=== PATIENT | female | born 1990 ===

== ENCOUNTER 2017-02-19 14:44 | Emergency (ER) | payer OTHER ==
[2017-02-19 15:21] VITALS: BP 106/71; PULSE 96; RESP 20; TEMP 98.5; O2SAT 100
--- NOTE | 2017-02-19 15:45 | C.PDOC ---
History Of Present Illness 26 y/o female presents to the ED for evaluation of recurring b/l breast pain which began around 2 days ago. Patient notes she experiences similar symptoms every month. She reports LMP was 6/. She denies swelling, discharge, redness, or any other associated symptoms. Patient denies breast feeding. RECUR B/L BREAST PAIN X 2 DAYS. PS GETS EVERY MONTH. LMP 6/. NO SWELL, DC, REDNESS. DENIES BREAST FEEDING. 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 NO GROSS BREAST ASYMMETRY. NO NIPPLE ABN, DC. GEN FIBROUS TISSUE ON DEEP PALPATION. NO DIMPLING, SKIN CHANGES. NO AXILLA NODES SKIN NO RASH MDM ADVISED NSAIDS, FU CLINIC Time Seen by Provider: 02/19/17 15:27 Chief Complaint (Nursing): Breast Problem History Per: Patient History/Exam Limitations: no limitations Onset/Duration Of Symptoms: Days (2) Current Symptoms Are (Timing): Still Present Additional History Per: Patient Past Medical History Reviewed: Historical Data, Nursing Documentation, Vital Signs Vital Signs: Last Vital Signs Temp 98.5 F 02/19/17 15:18 Pulse 96 H 02/19/17 15:18 Resp 20 02/19/17 15:18 BP 106/71 02/19/17 15:18 Pulse Ox 100 02/19/17 22:10 - Medical History PMH: No Chronic Diseases Surgical History: No Surg Hx Family History: States: Unknown Family Hx - Social History Hx Alcohol Use: No Hx Substance Use: No - Immunization History Hx Tetanus Toxoid Vaccination: No Hx Influenza Vaccination: No Hx Pneumococcal Vaccination: No Review Of Systems Except As Marked, All Systems Reviewed And Found Negative. Musculoskeletal: Positive for: Other (b/l breast pain ) Skin: Negative for: Rash Physical Exam - Physical Exam Appears: Non-toxic, No Acute Distress Skin: Normal Color, Warm, Dry Eye(s): bilateral: Normal Inspection Lymphatic: No Axilla Node Tenderness Chest: Symmetrical, No Deformity, No Tenderness, Other (no gross breast asymmetry. no nipple abnormalities or discharge. generalized fibrous tissue on deep palpation. no dimpling, skin changes. 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) Cardiovascular: Rhythm Regular, No Murmur Respiratory: Normal Breath Sounds, No Rales, No Rhonchi, No Wheezing Extremity: Normal ROM, Capillary Refill (less than 2 seconds ) Neurological/Psych: Normal Speech, Normal Cognition Gait: Steady ED Course And Treatment O2 Sat by Pulse Oximetry: 100 (on RA) Pulse Ox Interpretation: Normal Medical Decision Making Medical Decision Making: ADVISED NSAIDS, FU CLINIC Disposition Counseled Patient/Family Regarding: Diagnosis, Need For Followup, Rx Given - Disposition Referrals: [facility] [Outside] [facility] [Outside] Disposition: HOME/ ROUTINE Disposition Time: 15:44 Condition: GOOD Prescriptions: Ibuprofen [Motrin] 600 mg PO Q6 #30 tab Instructions: Breast Self Exam for Women (ED) Print Language: AMHARIC - Clinical Impression Clinical Impression: Breast pain - Scribe Statement The provider has reviewed the documentation as recorded by the Scribe (Sharon Melo) Provider Attestation: All medical record entries made by the Scribe were at my direction and personally dictated by me. I have reviewed the chart and agree that the record accurately reflects my personal performance of the history, physical exam, medical decision making, and the department course for this patient. I have also personally directed, reviewed, and agree with the discharge instructions and disposition.
== END 2017-02-19 15:51 | disposition home or self-care (01) ==
LOC: C.ER 14:44
DX: N64.4 Mastodynia (principal)

== ENCOUNTER 2017-04-20 14:30 | Emergency (ER) | payer SELFPAY ==
--- NOTE | 2017-04-20 14:59 | C.PDOC ---
History Of Present Illness 26 y/o female, , estimated appx 6 weeks , presents with c/o vaginal bleeding x 2 days. Patient describes spotting yesterday, and notes heavier vaginal bleeding today with with clots; no other tissue. Patient reports she had positive urine test in clinic, and notes no ultrasound has been performed yet. Patient also reports lower abdominal cramping. Denies fever, vomiting, SOB. Time Seen by Provider: 04/20/17 14:43 Chief Complaint (Nursing): Female Genitourinary History Per: Patient History/Exam Limitations: no limitations Onset/Duration Of Symptoms: Days Current Symptoms Are (Timing): Still Present Quality Of Discomfort: Cramping Associated Symptoms: denies: Fever, Chills, Nausea, Vomiting, Diarrhea, Urinary Symptoms Recent travel outside of the [place]: No Abnormal Vaginal Bleeding: Yes : 1 Para: 0 Miscarriage: 0 Past Medical History Reviewed: Historical Data, Nursing Documentation, Vital Signs Vital Signs: Last Vital Signs Temp 98.6 F 04/20/17 14:36 Pulse 86 04/20/17 14:36 Resp 18 04/20/17 14:36 BP 110/76 04/20/17 14:36 Pulse Ox 100 04/20/17 14:59 - Medical History PMH: No Chronic Diseases Family History: States: Unknown Family Hx - Social History Hx Alcohol Use: No Hx Substance Use: No - Immunization History Hx Tetanus Toxoid Vaccination: No Hx Influenza Vaccination: No Hx Pneumococcal Vaccination: No Review Of Systems Except As Marked, All Systems Reviewed And Found Negative. Constitutional: Negative for: Fever, Chills Respiratory: Negative for: Cough, Shortness of Breath, Wheezing Gastrointestinal: Positive for: Abdominal Pain. Negative for: Vomiting Genitourinary: Positive for: Vaginal Bleeding Skin: Negative for: Rash Physical Exam - Physical Exam Additional Physical Exam Comments: Constitutional: No acute distress. Head: Normocephalic. Atraumatic. Eyes: PERRL. ENT: Moist mucous membranes. Neck: Supple. Cardiovascular: Regular rate. Radial pulse 2+ bilaterally. Chest: No tenderness. Respiratory: Clear to auscultation bilaterally. GI: Soft. Nontender. Nondistended. Back: No CVA tenderness. Musculoskeletal: No tenderness or swelling of extremities. Skin: No rash. Neurologic: Alert, no focal deficit. ED Course And Treatment - Laboratory Results Result Diagrams: 04/20/17 15:05 04/20/17 15:05 O2 Sat by Pulse Oximetry: 100 (RA) Pulse Ox Interpretation: Normal Medical Decision Making Medical Decision Making: Plan: * Ultrasound * Labs * Tylenol * Reassess Progress: US shows IUP, no FHR detected. Macrobid administered. F/u OBGYN, return to ED for worsening pain, bleeding, dyspnea, vomiting, or any other problem. Disposition - Disposition Referrals: at [facility] [Outside] Disposition: HOME/ ROUTINE Disposition Time: 16:53 Condition: STABLE Prescriptions: Nitrofurantoin Macrocrystals [Macrobid] 100 mg PO BID #13 cap Instructions: Threatened Miscarriage (ED) Forms: KO-SU (Georgian) - Clinical Impression Clinical Impression: Threatened - Scribe Statement The provider has reviewed the documentation as recorded by the Scribe SM All medical record entries made by the Scribe were at my direction and personally dictated by me. I have reviewed the chart and agree that the record accurately reflects my personal performance of the history, physical exam, medical decision making, and the department course for this patient. I have also personally directed, reviewed, and agree with the discharge instructions and disposition.
[2017-04-20 15:00] LABS: RBC URINE 378 /hpf (0-3); URINE BACTERIA RARE (<OCC); URINE BILIRUBIN NEGATIVE (NEGATIVE); URINE BLOOD 3+ (NEGATIVE); URINE COLOR Yellow (YELLOW); URINE GLUCOSE (UA) NORMAL (Normal); URINE KETONE TRACE mg/dL (NEGATIVE); URINE LEUKOCYTE ESTERASE TRACE Leu/uL (Negative); URINE PROTEIN 1+ mg/dL (NEGATIVE); URINE UROBILINOGEN NORMAL mg/dL (0.2-1.0); WBC URINE 1 /hpf (0-5)
[2017-04-20 15:14] LABS: BASO % 0.6 % (0.0-2.0); EOS % 0.8 % (0.0-4.0); HEMATOCRIT 39.4 % (34.0-47.0); LYMPH # 1.2 K/uL (1.0-4.3); LYMPH % 18.6 % (20.0-40.0); MEAN CORPUSCULAR HEMOGLOBIN 28.5 pg (27.0-31.0); MEAN PLATELET VOLUME 7.4 fL (7.2-11.7); MONO # 0.6 K/uL (0.0-0.8); MONO % 10.2 % (0.0-10.0); RED CELL DISTRIBUTION WIDTH 14.2 % (11.5-14.5); WHITE BLOOD COUNT 6.2 K/uL (4.8-10.8)
[2017-04-20 15:23] LABS: CHLORIDE 104 mmol/L (98-107); POTASSIUM 3.6 mmol/L (3.6-5.2); SODIUM 140 mmol/L (132-148)
[2017-04-20 15:25] LABS: AST/SGOT 23 U/L (14-36); BILIRUBIN,TOTAL 0.6 mg/dL (0.2-1.3); CARBON DIOXIDE 22 mmol/L (22-30); GFR AFRICAN-AMERICAN > 60
[2017-04-20 15:26] LABS: ALB/GLOB RATIO 1.2 (1.0-2.1); ALKALINE PHOSPHATASE 112 U/L (38-126); ALT/SGPT 29 U/L (9-52); BLOOD UREA NITROGEN 11 mg/dL (7-17); CALCIUM 9.3 mg/dl (8.6-10.4); GLUCOSE,RANDOM 87 mg/dL (65-105); TOTAL PROTEIN 7.2 g/dL (6.3-8.3)
--- NOTE | 2017-04-20 16:42 | US ---
Indication: vag bleed in , assess cervix Comparison: None available. Technique: 1st trimester/Ob transvaginal ultrasound Findings: Uterus measures approximately 8.1 x 5.1 x 5.5 cm. Anteverted. Cervix length measures approximately 3.7 cm. 5 mm nabothian cyst. Small fluid noted within the cervix. There is a single intrauterine fetus present. 4 mm yolk sac. The gestational sac measures 1.8 cm and is compatible with a gestational age of 6 weeks 2 days. The crown-rump length measures 1.0 cm and is compatible with a gestational age of 7 weeks 1 day. heart motion is not detected. The right ovary measures 2.5 x 1.9 x 3.2 cm. The left ovary measures 4.0 x 2.0 x 3.4 cm. 1.2 x 0.9 x 1.2 cm left ovarian cyst. Blood flow was demonstrated to both ovaries. Impression: Single intrauterine with estimated gestational age 6 weeks 2 days by gestational sac calculation and 7 weeks 1 day by crown-rump length calculation. heart motion was not detected during this examination. Correlate clinically and follow-up as indicated. Small fluid is noted within the cervix which measures approximately 3.7 cm in length. 1.2 cm left ovarian cyst.
[2017-04-20 17:02] VITALS: BP 109/75; PULSE 98; RESP 20; TEMP 98.1; O2SAT 99
== END 2017-04-20 17:02 | disposition home or self-care (01) ==
LOC: C.ER 14:30
DX: O20.0 Threatened abortion (principal); Z3A.01 Less than 8 weeks gestation of pregnancy

== ENCOUNTER 2017-04-21 17:39 | Emergency (ER) | payer OTHER ==
[2017-04-21 17:52] VITALS: BMI 25.4
--- NOTE | 2017-04-21 18:23 | C.PDOC ---
History Of Present Illness <MurilloHiral Elmer - Last Filed: 04/21/17 18:55> <PetraMiranda - Last Filed: 04/21/17 20:09> 26 y/o female, , estimated 6 weeks , presents with complaints of lower abdominal cramping pain and vaginal bleeding for 3 days. Patient states she was seen in ED yesterday and told to return for any worsening bleeding or pain. She states the pain is more consistent and heavier vaginal bleeding today with with clots; no other tissue. (ChidiBoydHiral L) History Per: Patient, Family History/Exam Limitations: no limitations Onset/Duration Of Symptoms: Days (3) Current Symptoms Are (Timing): Still Present Severity: Moderate Quality Of Discomfort: Cramping, "Pain" Abnormal Vaginal Bleeding: Yes Last Menstral Period: 02/24/17 : 1 Para: 0 <MurilloHiral Elmer - Last Filed: 04/21/17 18:55> <Miranda Lambert - Last Filed: 04/21/17 20:09> Time Seen by Provider: 04/21/17 17:59 Chief Complaint (Nursing): Female Genitourinary Past Medical History Reviewed: Historical Data, Nursing Documentation, Vital Signs - Medical History PMH: No Chronic Diseases Surgical History: No Surg Hx Family History: States: Unknown Family Hx - Social History Hx Alcohol Use: No Hx Substance Use: No - Immunization History Hx Tetanus Toxoid Vaccination: No Hx Influenza Vaccination: No Hx Pneumococcal Vaccination: No <MurilloHiral Elmer - Last Filed: 04/21/17 18:55> Review Of Systems Except As Marked, All Systems Reviewed And Found Negative. Genitourinary: Positive for: Vaginal Bleeding <MurilloHiral Elmer - Last Filed: 04/21/17 18:55> Physical Exam - Physical Exam Appears: Non-toxic, No Acute Distress, Other (tearful, sad) Skin: Warm, Dry, No Pale, No Rash Head: Atraumatic, Normacephalic Eye(s): bilateral: Normal Inspection, EOMI Nose: Normal Oral Mucosa: Moist Neck: Normal ROM Chest: Symmetrical Cardiovascular: Rhythm Regular, No Murmur Respiratory: Normal Breath Sounds, No Accessory Muscle Use, No Rhonchi, No Wheezing Gastrointestinal/Abdominal: Bowel Sounds, Soft, Tenderness (Mild suprapubic tenderness), No Distention, No Guarding, No Hernia Back: Normal Inspection, No CVA Tenderness Extremity: Bilateral: Atraumatic, Normal ROM Neurological/Psych: Oriented x3, Normal Speech Gait: Steady <Hiral Murillo - Last Filed: 04/21/17 18:55> ED Course And Treatment - Laboratory Results Result Diagrams: 04/21/17 18:46 O2 Sat by Pulse Oximetry: 100 (room air) Pulse Ox Interpretation: Normal <Hiral Murillo - Last Filed: 04/21/17 18:55> - Laboratory Results Result Diagrams: 04/21/17 18:46 <Miranda Lambert - Last Filed: 04/21/17 20:09> Medical Decision Making <Hiral Murillo - Last Filed: 04/21/17 18:55> <Miranda Lambert - Last Filed: 04/21/17 20:09> Medical Decision Making: Impression: female with vaginal bleeding and cramping pain, likely spontaneous Plan: Ultrasound Labs Tylenol Record from yesterday reviewed: US shows IUP, no FHR detected. BHCG was 7138.4 Case signed out to DR Lambert pending US and labs (Hiral Murillo) Disposition - Disposition Disposition Time: 18:55 - POA Present On Arrival: None <Hiral Murillo - Last Filed: 04/21/17 18:55> Counseled Patient/Family Regarding: Studies Performed, Diagnosis, Need For Followup <Miranda Lambert - Last Filed: 04/21/17 20:09> - Disposition Referrals: [facility] [Outside] [facility] [Outside] Disposition: HOME/ ROUTINE Condition: FAIR Instructions: Spontaneous Miscarriage (ED) Forms: Algisys (Telugu) - Clinical Impression Clinical Impression: demise Physician Patient Turnover Patient Signed Over To: Miranda Lambert Handoff Comments: Pending US and labs <Hiral Murillo - Last Filed: 04/21/17 18:55>
[2017-04-21 18:52] LABS: HEMATOCRIT 39.8 % (34.0-47.0); MEAN CELL VOLUME 83.5 fL (81.0-99.0); MEAN CORPUSCULAR HGB CONC 33.6 g/dL (33.0-37.0); MEAN PLATELET VOLUME 7.4 fL (7.2-11.7); RED CELL DISTRIBUTION WIDTH 14.1 % (11.5-14.5); WHITE BLOOD COUNT 5.1 K/uL (4.8-10.8)
[2017-04-21 20:16] VITALS: BP 110/70; PULSE 86; RESP 16; TEMP 99; O2SAT 99
--- NOTE | 2017-04-22 07:57 | US ---
HISTORY: bleeding preg, miscarriage, r.o POC COMPARISON: Transvaginal obstetric ultrasound 04/20/2017. TECHNIQUE: Transvaginal pelvic ultrasound was performed for evaluation of pain potential potential retained products of conception is patient history of spontaneous vaginal bleeding in prior intrauterine gestation whose viability was not proven by ultrasonography 04/20/2017. FINDINGS: UTERUS: Measures 8.1 x 4.4 x 5.0 cm. Anteverted and mildly enlarged. No fibroid or other mass lesion seen. ENDOMETRIUM: Measures 11 mm in diameter. There is no intrauterine gestation identified compatible with spontaneous miscarriage. An endometrium of 11 mm is not suspicious for retained products of conception. Echogenicity of the endometrium is heterogeneous. Clinically correlate nevertheless. CERVIX: A nabothian cyst identified in the cervix with additional tiny cyst seen either in the lower uterine segment anteriorly submucous space oral in the upper cervix anteriorly. . RIGHT OVARY: Measures 3.1 x 2.2 x 2.9 cm. No solid mass. Normal flow. LEFT OVARY: Measures 2.5 x 1.8 x 2.3 cm. No solid mass. Normal flow. A probable corpus luteum cyst seen at the left ovary 1.2 cm FREE FLUID: , simple in appearance. No significant free fluid noted. OTHER FINDINGS: None. IMPRESSION: 1. The prior intrauterine gestation is now not visualized including the gestational sac. Pattern is compatible with the clinical history of miscarriage. Endometrium measures 11 mm which is below the measurements to suggest retained products of conception. Clinically correlate nevertheless. 2. Likely small left corpus luteum cyst.
== END 2017-04-21 20:16 | disposition home or self-care (01) ==
LOC: C.ER 17:39
DX: O02.1 Missed abortion (principal)

== ENCOUNTER 2018-04-22 20:25 | Emergency (ER) | payer OTHER ==
--- NOTE | 2018-04-22 21:08 | OBHP ---
Datetime: 04/22/2018 21:03 IP Adm Impression: Term, intrauterine IP Admit Plan: Discharge home Admit Comment, IP Provider: @ 40.2 wks GA c/o of ctx laurie neveyr 5-10 min regular / intesnity . pt dneis ny lof, vb, +FM. Pt michael any issues with and rperots receives regular prenatl c are. Pt denies any discharge, bowel or bladder complaints. P tproerts seen lat week and has anohter a ppoitnemt this week adn is schlued for induction on . 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 PMH: Denies PSH: dines FH:X non contibuir MEDS: PNV NKDA SHX: negative x 3 A/P @ 40.2 wks GA not in labor -EFM Cat I -dc home -labor precautions given -Schleuled for Induction this week Pelvic Type - PN: Adequate Extremities - PN: Normal Abdomen - PN: Normal Back - PN: Normal Breast - PN: Normal Lungs - PN: Normal Heart - PN: Normal Thyroid - PN: Normal Neurologic - PN: Normal HEENT - PN: Normal General - PN: Normal Presentation-Admit: Vertex FHR - Baseline A Provider: 150 Membranes, Provider: Intact Contraction Comments Provider: q5-10 min Gestation - Est Wks by US: 40.2 IP Hx Assessment: The History has been Reviewed and is Current EGA AdmitDate IP: 40.2 Vital Signs Provider: Reviewed; Within Normal Limits IP Chief Complaint: Uterine contractions NICHD Variability Prov Fetus A: Moderate 6-25bpm FHR Category Provider Fetus A: Category I NICHD Decel Fetus A IP Provider: None Dilatation, Provider: 1 Effacement, Provider: 0 Station, Provider: -3 Genitourinary Exam: Normal DTRs - PN: Normal
--- NOTE | 2018-04-22 21:09 | OBDCSUM ---
Datetime: 04/22/2018 21:06 Discharged to, Provider: Home Follow up at, Provider: clinic Disch Instr Activity: Normal activity Disch Instr Diet: Regular Discharge Instructions, Provider: Routine instructions given Discharge Time: 04/22/2018 21:06 Discharge Time: 04/22/2018 21:06 Disch Referrals: None Discharge Comment, Provider: pt edenilson for induction Thusrday labor precautin givne, if increasing pain, leakage of fluid, dischare, vaginal bleeidng, decreased or less or no movments or other concers come back ot earest er for evalutoin Discharge Diagnosis Prov Other: labor check not in labor
[2018-04-23 03:38] VITALS: BP 107/64; PULSE 98; RESP 18; TEMP 99; O2SAT 97
== END 2018-04-22 21:15 | disposition home or self-care (01) ==
LOC: C.EROB 20:25
DX: O47.1 False labor at or after 37 completed weeks of gestation (principal); Z3A.40 40 weeks gestation of pregnancy

== ENCOUNTER 2018-04-26 19:53 | Inpatient (IN) | payer MEDICAID, OTHER ==
[2018-04-26] MEDS: Lactated Ringer's 1,000 ML IV SCH (20:40)
[2018-04-26] MEDS ORDERED: Lactated Ringer's 1,000 ML IV ONE (21:18)
[2018-04-26 22:19] LABS: BASO % 0.3 % (0.0-2.0); EOS # 0.2 K/uL (0.0-0.7); EOS % 2.2 % (0.0-4.0); HEMOGLOBIN 11.9 g/dL (11.0-16.0); LYMPH # 1.3 K/uL (1.0-4.3); LYMPH % 15.5 % (20.0-40.0); MEAN CELL VOLUME 81.4 fL (81.0-99.0); MEAN CORPUSCULAR HEMOGLOBIN 27.7 pg (27.0-31.0); MEAN PLATELET VOLUME 7.4 fL (7.2-11.7); MONO # 0.5 K/uL (0.0-0.8); MONO % 6.4 % (0.0-10.0); NEUT # 6.2 K/uL (1.8-7.0); NEUT % 75.6 % (50.0-75.0); NRBC % 0.1 % (0.0-2.0); RBC 4.3 Mil/uL (3.80-5.20); RED CELL DISTRIBUTION WIDTH 15.4 % (11.5-14.5); WHITE BLOOD COUNT 8.2 K/uL (4.8-10.8)
[2018-04-26 22:26] LABS: SQUAMOUS EPITHIAL 11 /hpf (0-5); URINE BACTERIA FEW (<OCC); URINE BILIRUBIN NEGATIVE (NEGATIVE); URINE BLOOD 2+ (NEGATIVE); URINE CLARITY Hazy (Clear); URINE COLOR Yellow (YELLOW); URINE GLUCOSE (UA) NORMAL (Normal); URINE LEUKOCYTE ESTERASE 2+ Leu/uL (Negative); URINE PROTEIN 1+ mg/dL (NEGATIVE); URINE UROBILINOGEN NORMAL mg/dL (0.2-1.0)
[2018-04-26 22:31] LABS: ALBUMIN 3.1 g/dL (3.5-5.0); ALT/SGPT 28 U/L (9-52); AST/SGOT 26 U/L (14-36); BLOOD UREA NITROGEN 7 mg/dL (7-17); CALCIUM 8.2 mg/dl (8.6-10.4); GFR NON-AFRICAN AMERICAN > 60
--- NOTE | 2018-04-26 23:19 | OBADHP ---
Datetime: 04/26/2018 22:56 IP Admit Plan Other: Augmentation Admit Comment, IP Provider: Patient seen and evaluated at approximately 2050 hours. 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 , LMP unsure, ARIANA 04/20/18, EGA 40w 6d by sono 10/11/17 at 12w 5d, for IOL. (+) AFM; denies LOF, VB. (+) Ctx x approx 1 month; stronger last night, pain scale 3/10, occurring 10 to 15 m inutes since earlier today. Passed mucous plug 04/22/18. care: [facility]; no issues P Ob: 2017, Sp Ab, 2 months, no D_C P RN LAB: 12 x monthly x 3. No h/o STIs/abnormal Pap, ovarian cysts PMH: denies PSH: denies NKDA Meds: unclear as to when last taken vitamins Soc Hx: denies tobacco, illicit drug or EtOH use. With FOB x 1 yr; (+) cohabitation. Unemployed. Fam Hx: Mother alive 40 y.o. Father alive 45 u.o. - both, no med issues. P.E.: as above. Petite, in NAD. Awake, alert, oriented to time, person and place. Pleasant and co operative. Assessment: 26 y.o. P0010, 40w 6d, advanced cervical dilatation. Category 1 tracing. GBS (-). D/W patient augmentation with pitocin; pain relief - discussed epidural. Patient expressed an understandi ng and agrees with plan. No questions offered. Clinically stable. Plan: 1) Admit 2) NPO 3) Admission labs 4) Continuous EFM 5) Start pitocin 6) Pain relief, upon request 7) Anticipate vaginal delivery Pelvic Type - PN: Adequate Extremities - PN: Normal Abdomen - PN: Normal Back - PN: Normal Breast - PN: Normal Lungs - PN: Normal Heart - PN: Normal Thyroid - PN: Not Done Neurologic - PN: Normal HEENT - PN: Normal General - PN: Normal Presentation-Admit: Vertex FHR - Baseline A Provider: 145 Contraction Comments Provider: 6-10 minutes Comments, ACOG Physical Exam: Abdomen: Gravid. Soft. Nontender. Fundal height 40 cm All other systems reviewed and are negative Gestation - Est Wks by US: 40w 6d Vital Signs Provider: Reviewed; Within Normal Limits IP Chief Complaint: Scheduled induction of labor; Other NICHD Variability Prov Fetus A: Moderate 6-25bpm NICHD Accel Fetus A IP Provider: 15X15 FHR Category Provider Fetus A: Category I NICHD Decel Fetus A IP Provider: None Dilatation, Provider: 5 Effacement, Provider: 50 Station, Provider: -2 Genitourinary Exam: Normal DTRs - PN: Not Done EGA AdmitDate IP: 40.6 IP Adm Impression: Postterm, intrauterine ; No Active Labor; Intact Membranes IP Admit Plan: Admit to unit Datetime: 04/22/2018 21:03 Membranes, Provider: Intact IP Hx Assessment: The History has been Reviewed and is Current
[2018-04-27] MEDS ORDERED: Oxytocin 30 UNIT 30 UNITS/500 ML BAG IV ONE ×4 (00:01→15:10)
[2018-04-27] MEDS ORDERED: Bupivacaine HCl/FentaNYL Cit 100 ML EPI ONE ×3 (00:45→15:04)
[2018-04-27] MEDS: Lactated Ringer's 1,000 ML IV SCH (06:40)
--- NOTE | 2018-04-27 09:14 | OBPN ---
Datetime: 04/27/2018 09:07 IP Progress Impression: Normal progression of labor IP Procedures: Artificial ROM; Sterile Vag Exam IP Progress Plan: Continue present management; Augmentation; Anticipate Vaginal Delivery Membranes, Provider: Ruptured Amniotic Fluid Color, Provider: Clear Contraction Comments Provider: 1-2 FHR - Baseline A Provider: 140 Gestation - Est Wks by US: 41.0 Presentation-Admit: Vertex IP Progress Note Comment: Patient comfortable; S/P epidural. Cervical exam: as abov.e AROM performed, - moderte amount of clear amnion i fluid obtained. Pitoci n = 6 mUnits Assessment: 26 y.o. P0010, 41 weeks, IOL. Protracted active phase of labor. Category 1 tracing. Cl inically stable. Plan: 1) Continue pitocin 2) Anticipate vaginal delivery NICHD Accel Fetus A IP Provider: 15X15 FHR Category Provider Fetus A: Category I NICHD Variability Prov Fetus A: Moderate 6-25bpm Dilatation, Provider: 7 Effacement, Provider: 70 Station, Provider: -2 NICHD Decel Fetus A IP Provider: None Datetime: 04/26/2018 22:56 Vital Signs Provider: Reviewed; Within Normal Limits
--- NOTE | 2018-04-27 13:35 | OBPN ---
Datetime: 04/27/2018 13:24 IP Progress Impression Other: Protracted active phase of labor IP Procedures: Intrauterine Pressure Catheter IP Progress Plan: Continue present management; Augmentation; Anticipate Vaginal Delivery Membranes, Provider: Ruptured Contraction Comments Provider: 1-2 IP Progress Note Comment: Patient receive din LDR#2, comfortable. Cervicl exam: as above. IUPC inserted without difficulty Assessment: 27 y.o. P0010, 41 weeks; protracted active phase of labor on pitocin - S/P AROM. IUPC as above. D/W patient, will re-examine in 2 hours. If no appropriate progress, will proceed with abd omnal delivery. Pateint expressed an understanding. Patient is clinically stable. Plan: 1) Re-examine in 2 hours Dilatation, Provider: 8 Effacement, Provider: 80 Station, Provider: 1
[2018-04-27] MEDS ORDERED: Sodium Bicarbonate (8.4%) 50 Meq Syringe ONE (15:44)
[2018-04-27] MEDS ORDERED: cefOXitin IV 2 gm in Saline 0 GM/0 ML BAG IVPB ONE (16:41)
[2018-04-27] MEDS ORDERED: Sodium Citrate/Citric Acid 15 ml Sol ONE (16:41)
[2018-04-27] MEDS ORDERED: Oxytocin 20 units in LR 0 ML IV ONE (16:42)
--- NOTE | 2018-04-27 17:09 | OBPN ---
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 Assessment: 27 y.o. P0010, 41 weeks, arrest of labor: arrest of cervical dilatation at 8 cm, arres t of descent with adequate contractions (>200 Swatara units for > 2 hours). Patient and FOB , counseled re: abdominal delivery, i.e., section. Patient is refusing to proceed with this mode of delivery, indicating "I want to do this by my own force". Several attempts were made to expla in to patient that all maneuvers that are available have been implemented and exhausted. Patient stil l refuses. Refusal of Treatment - Release of Liability form was dated and signed by patient, FOB pres ent throughout the entire encounter, after a lengthy discussion of possible complications, including but not limited infection, sepsis, neurologic and other organ compromise and failure, to either and/or both mother and fetus. Category 1 traicng. Patient is clinically stable. Plan: 1) expectant management 2) Continue pitocin and close observation NICHD Accel Fetus A IP Provider: 15X15 FHR Category Provider Fetus A: Category I NICHD Variability Prov Fetus A: Moderate 6-25bpm Dilatation, Provider: 8 Effacement, Provider: 90 Station, Provider: 1 NICHD Decel Fetus A IP Provider: None
[2018-04-27] MEDS ORDERED: Clindamycin 600 MG in Sodium Chloride 0.9% 100 ML IV SCH (19:30)
[2018-04-27] MEDS ORDERED: AMPicillin 2 GM in Sodium Chloride 100 ML IVPB SCH (19:30)
[2018-04-27] MEDS: AMPicillin 2 GM in Sodium Chloride 0.9% 100 ML IVPB SCH (20:09)
[2018-04-27] MEDS ORDERED: Lidocaine 2% MPF (5 ml) Inj ONE ×2 (20:22→23:01)
[2018-04-27] MEDS: Clindamycin 600mg/50ml NS 600 MG/50 ML BAG IVPB SCH (22:18)
[2018-04-27] MEDS ORDERED: Oxycodone/Acetaminophen 5/325 mg Tab PO PRN ×2 (23:42)
--- NOTE | 2018-04-28 00:17 | OBDS ---
DELIVERY PERSONNEL Delivery Doctor: Nikole Luciano MD Processes Chemical Design Engineer: Stephanie Christina RN Anesthesiologist: Dr. Villagran MATERNAL INFORMATION Delivery Anesthesia: Epidural Medications in Delivery: oxytocin 30 units in 500 ml NACL Estimated Blood Loss (ml): 500 Placenta Cultured: No Provider Comments: Vaginal delivery, live female , JAYESH position over right mediolateral episio jazzmine. 's mouth and nose bulb-sucitoned; umbilical cord doubly clamped and cut; placed on mother's abdomen. Spontaneous delivery of placenta, grossly normal; 3 vessel cord Uteine exploraiton performed; uterus emptied of clots -contracted and firm Cervix, vagina, perineum inspected - laceration noted and repaired as above. Patient tolerated procedure well; bonded with . Infant to well baby nursery for further ismael gement - due to maternal fever. Mother and baby in stable condition EBL 500 mL Weight 8lb 6oz 's 9/9 LABOR SUMMARY EDC: 04/20/2018 00:00 No. Babies in Womb: 1 Attempted: No Labor Anesthesia: Epidural LABOR INFORMATION Onset of Labor: 04/26/2018 11:00 Complete Dilatation: 04/27/2018 19:14 Oxytocin: Augmentation Group B Beta Strep: Negative Antibiotics # of Doses: 3 Antibiotics Time of Last Dose: 2218 Steroids Given: None Reason Steroids Not Administered: Not Applicable MEMBRANES Membranes Rupture Method: Artificial Rupture of Membranes: 04/27/2018 09:06 Length of Rupture (hrs): 13.70 Amniotic Fluid Color: Clear Amniotic Fluid Amount: Moderate Amniotic Fluid Odor: Normal STAGES OF LABOR Stage 1 hrs: 32 Stage 1 min: 14 Stage 2 hrs: 3 Stage 2 min: 34 Stage 3 hrs: 0 Stage 3 min: 27 Total Time in Labor hrs: 36 Total Time in Labor min: 15 VAGINAL DELIVERY Episiotomy: Right Mediolateral Laceration Extension: First Degree Laceration Type: Vaginal Laceration Repair: Yes Laceration Repair Note: 2-0 and 3-0 chromic - routine fashion Hemostasis assured Patient tolerated procedure well Initial Vag Sponge Count: 11 Final Vag Sponge Count: 21 Initial Vag Sharps Count: 3 Final Vag Sharps Count: 3 Sponge Count Correct: Yes Sharps Count Correct: Yes Count Comment: Correct CSECTION DELIVERY Uterine Closure: Double-layer closure BABY A INFORMATION Infant Delivery Date/Time: 04/27/2018 22:48 Method of Delivery: Vaginal Born in Route : No : N/A Forceps: N/A Vacuum Extraction: N/A SHOULDER DYSTOCIA BABY A Infant Delivery Date/Time: 04/27/2018 22:48 PRESENTATION/POSITION BABY A Presentation: Cephalic Cephalic Presentation: Vertex Vertex Position: Right Occipital Anterior Breech Presentation: N/A PLACENTA INFORMATION BABY A Placenta Delivery Time : 04/27/2018 23:15 Placenta Method of Delivery: Expressed Placenta Status: Delivered SCORES BABY A Heart Rate 1 min: >100 bpm Resp Effort 1 min: Good Cry Reflex Irritability 1 min: Cough or Sneeze or Pulls Away Muscle Tone 1 min: Active Motion Color 1 min: Body [place], Extremities Blue Resuscitation Effort 1 min: Tactile Stimulation SCORE 1 MIN: 9 Heart Rate 5 min: >100 bpm Resp Effort 5 min: Good Cry Reflex Irritability 5 min: Cough or Sneeze or Pulls Away Muscle Tone 5 min: Active Motion Color 5 min: Body [place], Extremities Blue Resuscitation Effort 5 min: N/A SCORE 5 MIN: 9 INFORMATION BABY A Gestational Age at Delivery: 41.0 Gestational Status: Term Infant Outcome : Liveborn Infant Condition : Stable Infant Sex: Female IDENTIFICATION/MEDS BABY A ID Band Number: [id number] Sensor Number: [id number] WEIGHT/LENGTH BABY A Birthweight (gms): 3795 Weight (lb): 8 Infant Weight (oz): 6 Length Inches: 20.50 Infant Length cms: 52.1 CORD INFORMATION BABY A No. Cord Vessels: 3 Nuchal Cord : N/A Infant Suction: Mouth; Nose
[2018-04-28] MEDS: AMPicillin 2 GM in Sodium Chloride 0.9% 100 ML IVPB SCH ×4 (01:53→20:14)
[2018-04-28] MEDS: Clindamycin 600mg/50ml NS 600 MG/50 ML BAG IVPB SCH ×3 (04:19→20:17)
[2018-04-28] MEDS: Benzocaine/Menthol 20%-0.5% Topical Spray (60 ml) TOP SCH ×3 (04:20→12:29)
[2018-04-28 06:50] LABS: BASO % 0.2 % (0.0-2.0); EOS % 0.1 % (0.0-4.0); MEAN CELL VOLUME 79.5 fL (81.0-99.0); MEAN PLATELET VOLUME 7.4 fL (7.2-11.7); MONO # 1.2 K/uL (0.0-0.8); MONO % 6.9 % (0.0-10.0); NEUT # 15.1 K/uL (1.8-7.0); NEUT % 86.8 % (50.0-75.0); PLATELET COUNT 222 K/uL (130-400); RBC 2.85 Mil/uL (3.80-5.20); RED CELL DISTRIBUTION WIDTH 15.6 % (11.5-14.5); WHITE BLOOD COUNT 17.4 K/uL (4.8-10.8)
[2018-04-28 07:08] LABS: HEMOGLOBIN 7.7 g/dL (11.0-16.0)
[2018-04-28] MEDS: Multiple Vitamins Tab PO SCH (09:22)
[2018-04-28 09:24] LABS: BANDS 9 % (0-2); TOTAL CELLS COUNTED 100
[2018-04-28 09:25] LABS: LYMPHOCYTE 6 % (20-40); MONOCYTE 7 % (0-10); NEUTROPHIL 78 % (50-75)
--- NOTE | 2018-04-28 09:47 | OBPPN ---
Datetime: 04/28/2018 09:35 PP Pain Prov: Within normal limits PP Nausea Prov: Denies PP Flatus Prov: No PP Breasts Prov: Not Done PP Heart Prov: Normal PP Lungs Prov: Normal PP Abdomen/Uterus Prov: Normal PP Lochia Prov: Normal PP Vulva/Perineum Prov: Normal PP CVA Tenderness Prov: Normal PP Extremities Prov: Normal PP C/S Incision Prov: Not Applicable PP Progress Prov: Normal PP Comments Phys Exam Prov: Mild Lochia. Fundus firm and non-tender PP Impression Prov: Endometritis PP Plan Prov: Continue present management; Antibiotic therapy PP Progress Note Prov: PPD # 1 S/P with ML episiotomy and Midline tear Increased temp prior to delivery and started on triple antibiotics by Dr. Still Afebrile since 2330 WBC this AM 17.4 and temp 97.7 Will D/C Antibiotics after 24 hrs afebrile Mild Lochia. Fundus firm and non-tender Stated that when she went to the bathroom last catracho, she felt dizzie. Not OOB this AM yet. H_H this AM 7.7/22.7 and started on Fe and Colace TID OK Drinks little to no water and advised to increase po water intake and Fiber in diet. Advance care May heplock IV after present dose of Antibiotics and may shower and increase activity IP PP Procedures: None Vital Signs Provider PP: Reviewed; Within Normal Limits
[2018-04-28 09:49] LABS: PLATELET ESTIMATE NORMAL (NORMAL)
[2018-04-28 09:50] LABS: ANISOCYTOSIS SLIGHT
[2018-04-29] MEDS: AMPicillin 2 GM in Sodium Chloride 0.9% 100 ML IVPB SCH ×4 (02:18→20:30)
[2018-04-29] MEDS: Clindamycin 600mg/50ml NS 600 MG/50 ML BAG IVPB SCH ×3 (04:05→20:01)
[2018-04-29 08:38] LABS: BASO % 0.3 % (0.0-2.0); EOS # 0.3 K/uL (0.0-0.7); EOS % 2.1 % (0.0-4.0); LYMPH # 1.8 K/uL (1.0-4.3); LYMPH % 14.1 % (20.0-40.0); MEAN CELL VOLUME 80.4 fL (81.0-99.0); MEAN CORPUSCULAR HEMOGLOBIN 27.1 pg (27.0-31.0); MEAN CORPUSCULAR HGB CONC 33.7 g/dL (33.0-37.0); MEAN PLATELET VOLUME 7.8 fL (7.2-11.7); MONO # 0.8 K/uL (0.0-0.8); MONO % 6.6 % (0.0-10.0); NEUT # 9.7 K/uL (1.8-7.0); NEUT % 76.9 % (50.0-75.0); RBC 2.5 Mil/uL (3.80-5.20); RED CELL DISTRIBUTION WIDTH 15.4 % (11.5-14.5); WHITE BLOOD COUNT 12.6 K/uL (4.8-10.8)
[2018-04-29 08:53] LABS: HEMOGLOBIN 6.8 g/dL (11.0-16.0)
[2018-04-29] MEDS: Multiple Vitamins Tab PO SCH (09:15)
--- NOTE | 2018-04-29 16:32 | OBPPN ---
Datetime: 04/29/2018 12:20 PP Pain Prov: Within normal limits PP Pain Prov comment: Feeling dizzie when OOB PP Nausea Prov: Denies PP Flatus Prov: Yes PP BM Prov: Yes PP Breasts Prov: Not Done PP Heart Prov: Normal PP Lungs Prov: Normal PP Abdomen/Uterus Prov: Normal PP Lochia Prov: Normal PP Vulva/Perineum Prov: Normal PP CVA Tenderness Prov: Normal PP Extremities Prov: Normal PP C/S Incision Prov: Not Applicable PP Progress Prov: Normal PP Impression Prov: Endometritis PP Plan Prov: Continue present management; Antibiotic therapy PP Progress Note Prov: PPD # 2 On triple Antibiotics for presumed Endometritis and Afebrile for about 36 hours. WBC today 12.6 an d decreasing H_H 6.8/20.1/ Acute Anemia secondary to acute blood loss and mildly symptomatic Extensive counseling done re recomended blood transfusion of at least 1 Unit of PRBC's and after a ll of her questions answered in [place] by myself, she declined it. Fully aware of possible passing o ut, falling and hurting herself and her baby and still declines. Taking Fe and Colace TID with difficulties and advised to increase po water intake but prefers to drink Power marga consultation to assist Counseled to increase activity and ambulation. Jonah also on Antibiotics Will continue her triple Antibiotics until afebrile x 24 hours Hope to discharge home in AM IP PP Procedures: None Vital Signs Provider PP: Reviewed; Within Normal Limits
[2018-04-30] MEDS: AMPicillin 2 GM in Sodium Chloride 0.9% 100 ML IVPB SCH ×4 (02:12→20:41)
[2018-04-30] MEDS: Clindamycin 600mg/50ml NS 600 MG/50 ML BAG IVPB SCH ×3 (03:29→20:09)
--- NOTE | 2018-04-30 09:01 | OBPPN ---
Datetime: 04/30/2018 08:57 PP Pain Prov: Within normal limits PP Nausea Prov: Denies PP Flatus Prov: Yes PP BM Prov: Yes PP Breasts Prov: Normal PP Lungs Prov: Normal PP Abdomen/Uterus Prov: Normal PP Lochia Prov: Normal PP Extremities Prov: Normal PP C/S Incision Prov: Not Applicable PP Progress Prov: Normal PP Comments Phys Exam Prov: ABD: Soft, NT , Incision clean and dry Uterus below umbilicus Exr: No calf tenderness PP Impression Prov: Normal progression; Endometritis PP Plan Prov: Continue present management; Antibiotic therapy PP Progress Note Prov: POD #3 Pt doig well. No c/o SOB, Palpitations , dizziness, Lochia moderate. Acute blood loss anemia- Pt declining blood transfusion repeat CBC today Plan DC home after blood work if favourable. IP PP Procedures: None; Antibiotics
[2018-04-30] MEDS: Multiple Vitamins Tab PO SCH (09:03)
[2018-04-30 11:37] LABS: BASO % 0.3 % (0.0-2.0); EOS # 0.2 K/uL (0.0-0.7); EOS % 2.2 % (0.0-4.0); HEMOGLOBIN 7.5 g/dL (11.0-16.0); LYMPH # 1.3 K/uL (1.0-4.3); LYMPH % 12.2 % (20.0-40.0); MEAN CELL VOLUME 81.6 fL (81.0-99.0); MEAN CORPUSCULAR HEMOGLOBIN 27.4 pg (27.0-31.0); MEAN CORPUSCULAR HGB CONC 33.6 g/dL (33.0-37.0); MEAN PLATELET VOLUME 7.7 fL (7.2-11.7); MONO # 0.5 K/uL (0.0-0.8); MONO % 4.6 % (0.0-10.0); NEUT # 8.8 K/uL (1.8-7.0); NEUT % 80.7 % (50.0-75.0); RBC 2.72 Mil/uL (3.80-5.20); RED CELL DISTRIBUTION WIDTH 15.7 % (11.5-14.5)
[2018-04-30 12:23] LABS: ALB/GLOB RATIO 0.9 (1.0-2.1); ALBUMIN 2.4 g/dL (3.5-5.0); ALT/SGPT 35 U/L (9-52); AST/SGOT 67 U/L (14-36); BLOOD UREA NITROGEN 8 mg/dL (7-17); CALCIUM 7.6 mg/dl (8.6-10.4); GFR NON-AFRICAN AMERICAN > 60
[2018-04-30 16:33] VITALS: O2SAT 100
[2018-05-01 00:41] VITALS: PULSE 88
[2018-05-01 08:35] VITALS: BP 96/65; RESP 18; TEMP 97.8
[2018-05-01] MEDS: Multiple Vitamins Tab PO SCH (10:42)
--- NOTE | 2018-05-01 22:59 | OBDCSUM ---
Datetime: 05/01/2018 13:19 Discharged to, Provider: Home Follow up at, Provider: [facility] Disch Instr Activity: Normal activity; May Shower Disch Instr Diet: Regular Discharge Instructions, Provider: Routine instructions given Discharge Diagnosis, Provider: Postterm Delivery Discharge Time: 05/01/2018 13:00 Follow up in weeks, Provider: May 29, 2018 Disch Referrals: None Contraception discussed, Prov: Yes Disch Activity Restrictions: No exercising; No lifting; No sexual activity; Nothing in vagina - Inte rcourse, tampons, douche Discharge Diagnosis Prov Other: Acute chorioamnionitis Contraception counseling Acute blood loss anemia Contraception after Delivery: Undecided
--- NOTE | 2018-05-01 23:00 | OBPPN ---
Datetime: 05/01/2018 22:49 PP Pain Prov: Within normal limits PP Nausea Prov: Denies PP Flatus Prov: Yes PP BM Prov: Yes PP Breasts Prov: Normal PP Heart Prov: Normal PP Lungs Prov: Normal PP Abdomen/Uterus Prov: Normal PP Lochia Prov: Normal PP Vulva/Perineum Prov: Normal PP CVA Tenderness Prov: Normal PP Extremities Prov: Normal PP C/S Incision Prov: Not Applicable PP Progress Prov: Normal PP Comments Phys Exam Prov: Abdomen: Soft, Non distended. Fundus firm, mobile, non tender, 1 FB belo w umbilicus. Minimal lochia rubra. Extremtieis: no calf tenderness All other systems reviewed and are negative. PP Plan Prov: Discharge PP Progress Note Prov: Patient seen and evaluated approximately 1000 hours. received in bed, room 45 9. . Ambulating and voiding without difficulty. Denies headache, dizziness, chest pain o r palpitations, dizziness or lightheadedness P.E.: as aboe. WD in NAD. Awake, alert, oriented to time, person and place. [place] and [place] - PPD#3 H/H 7.5/22.2, Rh(+) Assessment: PPD#4, 27 y.o. P1011, S/P ; was on triple antibiotics for acute chorioamnionitis; a febrile > 24 hours. Acute blood loss anemia - asymptomatic and hemodynamically stable. Undecided re: contraception. Clinically stable Plan: 1) Discharge home 2) see full discharge instructions Vital Signs Provider PP: Reviewed; Within Normal Limits
== END 2018-05-01 15:25 | disposition home or self-care (01) | DRG 774 ==
LOC: C.EROB 19:53 → UNDOADMIN 20:38 → C.4D 20:38 → C.4M 04-28 01:15
PROVIDERS: ADMIT Obstetrics & Gynecology; ATTEND Obstetrics & Gynecology
PROC: 0HQ9XZZ Repair Perineum Skin, External Approach (ICD-10-PCS; principal; 2018-04-26)
PROC: 10E0XZZ Delivery of Products of Conception, External Approach (ICD-10-PCS; 2018-04-26)
PROC: 0W8NXZZ Division of Female Perineum, External Approach (ICD-10-PCS; 2018-04-26)
DX: O41.1290 Chorioamnionitis, unspecified trimester, not applicable or unspecified (principal); O75.2 Pyrexia during labor, not elsewhere classified; D62 Acute posthemorrhagic anemia; O70.0 First degree perineal laceration during delivery; O99.02 Anemia complicating childbirth; O48.0 Post-term pregnancy; Z3A.41 41 weeks gestation of pregnancy; Z37.0 Single live birth